=== PATIENT | male | born 1940 | race Caucasian/White ===

== ENCOUNTER 2016-06-25 13:57 | Day surgery (SDCO) | payer OTHER ==
[~2016-06-25 13:57] MED LIST: ALL DAY ALLERGY10 M3 PO; ASPIRIN CHEWABL81 MG PO; FLOMAX 0.4 MG0.4 MG PO; LEVAQUIN500 MG PO; LIPITOR40 MG PO; LOPRESSOR25 MG PO; NEURONTIN300 MG PO; ZESTORETIC 10-1 EACH PO
[2016-06-25 14:44] LABS: BASOPHIL 0 % (0-2); EOSINOPHIL 1.8 % (0-7); HGB 14.8 g/dl (13.2-18.0); MCH 29.6 pg (25.0-31.0); MCHC 32.2 g/dL (32.0-36.0); MONOCYTE 1.4 % (0-12); MPV 9.5 fL (6.0-9.5); NEUTROPHIL 87.8 % (41-80); PLT 118 K/uL (150-400); RDW 14.6 % (11.5-14.0); WBC 6.7 K/uL (4.0-10.5)
[2016-06-25 14:59] LABS: POTASSIUM 4.1 mmol/L (3.5-5.1)
[2016-06-25 16:22] LABS: BILIRUBIN NEGATIVE (NEGATIVE); BLOOD TRACE-INTACT Ery/uL (NEGATIVE); CLARITY CLEAR (CLEAR); COLOR YELLOW (YELLOW); GLUCOSE (U) NORMAL (NORMAL); KETONE (U) NEGATIVE (NEGATIVE); LEUKOCYTES NEGATIVE Leu/uL (NEGATIVE); NITRITE NEGATIVE (NEGATIVE); PROTEIN NEGATIVE (NEGATIVE); SPECIFIC GRAVITY 1.025 (1.001-1.030); UROBILINOGEN 0.2 mg/dL (0.2-1.0)
[2016-06-25 16:30] LABS: BACTERIA TRACE; SQUAMOUS EPITHELIAL CELLS RARE; URINARY WBC RARE
[2016-06-25 16:35] LABS: AMPHETAMINES NEGATIVE (NEGATIVE); BARBITURATES NEGATIVE (NEGATIVE); BENZODIAZEPINES NEGATIVE (NEGATIVE); COCAINE NEGATIVE (NEGATIVE); MARIJUANA (THC) NEGATIVE (NEGATIVE); METHADONE NEGATIVE (NEGATIVE); TRICYCLIC ANTIDEPRESSANT NEGATIVE (NEGATIVE)
[2016-06-25 16:41] LABS: LACTIC ACID 1.5 mmol/L (0.5-2.2)
[2016-06-26 05:18] LABS: HCT 37.4 % (42.0-52.0); HGB 12.1 g/dl (13.2-18.0); MCHC 32.4 g/dL (32.0-36.0); MCV 92.6 fL (78.0-100.0); MPV 9.9 fL (6.0-9.5); RBC 4.04 M/uL (4.70-6.00); RDW 14.7 % (11.5-14.0); WBC 8.1 K/uL (4.0-10.5)
[2016-06-26 05:40] LABS: CREATININE 1.1 mg/dL (0.7-1.2); POTASSIUM 4.3 mmol/L (3.5-5.1)
[2016-06-27 04:07] LABS: HCT 39.7 % (42.0-52.0); MCH 30.1 pg (25.0-31.0); MCHC 32.7 g/dL (32.0-36.0); MCV 91.9 fL (78.0-100.0); MPV 9.6 fL (6.0-9.5); RBC 4.32 M/uL (4.70-6.00); RDW 14.6 % (11.5-14.0)
[2016-06-27 04:23] LABS: POTASSIUM 4.4 mmol/L (3.5-5.1)
[2016-06-27] MEDS ORDERED: XARELTO20 MG PO (11:27)
[2016-06-27] MEDS ORDERED: VITAMIN B COMP1 EACH PO (11:27)
[2016-06-27] MEDS ORDERED: AMIODARONE HCL200 M1 PO (11:27)
[2016-06-27] MEDS ORDERED: AUGMENTIN 875-1 EACH PO (11:28)
[2016-06-27] MEDS ORDERED: ALFUZOSIN HCL E10 MG PO (11:28)
[2016-06-27] MEDS ORDERED: CO Q-10200 MG PO (11:28)
[2016-06-27] MEDS ORDERED: ZITHROMAX500 MG PO (11:29)
== END 2016-06-27 11:30 | disposition home or self-care (01) ==
LOC: FER 13:57 → FTCU 17:28
PROVIDERS: Emergency Medicine; Internal Medicine; Internal Medicine Adolescent Medicine; ADMIT Internal Medicine
DX: J18.9 Pneumonia, unspecified organism (principal); R09.02 Hypoxemia; I10 Essential (primary) hypertension; I48.0 Paroxysmal atrial fibrillation; E78.5 Hyperlipidemia, unspecified; I25.10 Atherosclerotic heart disease of native coronary artery without angina pectoris; J45.909 Unspecified asthma, uncomplicated; Z96.641 Presence of right artificial hip joint; Z95.1 Presence of aortocoronary bypass graft; Z23 Encounter for immunization
CPT/HCPCS: 36415; 36600; 70110; 71020; 71250; 80048; 80305; 81001; 82803; 83605; 84484; 85025; 85379; 85651; 86140; 86403; 87040; 87070; 87076; 87077; 87088; 87205; 87804; 87899; 90732; 93005; 94640; G0009; G0378; J0456; J2270